=== PATIENT | male | born 1990 | race Caucasian/White ===

== ENCOUNTER → 2017-04-26 | Outpatient (CLI) | payer OTHER ==
[~2017-04-26] VITALS: Ht 188 cm; Wt 150.6 kg
[~2017-04-26] MED LIST: SUMA20SP8 NAE
[2017-04-26 14:20] VITALS: BP 123/89; PULSE 89; Ht 188 cm; Wt 150.6 kg
== END | disposition home or self-care (01) ==
LOC: C.NEUR 14:06
PROVIDERS: ATTEND Physician Assistant
DX: G47.30 Sleep apnea, unspecified (principal); E66.01 Morbid (severe) obesity due to excess calories

== ENCOUNTER 2017-07-21 13:53 | Emergency (ER) | payer OTHER ==
[~2017-07-21] VITALS: Ht 188 cm; Wt 144.1 kg
[~2017-07-21 13:53] MED LIST changes: +DEPRESSION MED PO
[2017-07-21 13:58] VITALS: TEMP 36.8; Ht 188 cm; Wt 144.1 kg
[2017-07-21] MEDS ORDERED: HYDROCODONE/ACETAMOPHEN 5/325MG TAB PO ONE (14:15)
--- NOTE | 2017-07-21 14:41 | DIAGNOSTIC IMAGING REPORT ---
RIGHT ELBOW 3 VIEWS CLINICAL HISTORY: Right elbow injury. FINDINGS: 3 views of the right elbow are obtained. No prior studies are available for comparison at the time of dictation. The skeletal structures are well mineralized. No fracture is seen. The joint spaces are maintained. There is no joint effusion. Postoperative change is partially imaged in the ulnar shaft in the forearm. Mild dorsal soft tissue swelling is observed. IMPRESSION: Mild dorsal soft tissue swelling with no radiographic evidence of right elbow fracture. Electronically signed by: Larry Eduardo M.D. 07/21/2017 2:39 PM Dictated Date/Time: 07/21/2017 2:38 PM
--- NOTE | 2017-07-21 14:41 | DIAGNOSTIC IMAGING REPORT ---
R FOREARM 2 VIEWS ROUTINE CLINICAL HISTORY: Right forearm pain status post trauma COMPARISON: Intraoperative radiograph dated 06/12/2015 DISCUSSION: There is an old internally fixated ulnar fracture. There is an old ununited ulnar styloid fracture. No acute fractures are visualized. IMPRESSION: Old postsurgical and posttraumatic change. No acute fractures are visualized. Electronically signed by: Wagner Osullivan M.D. 07/21/2017 2:39 PM Dictated Date/Time: 07/21/2017 2:38 PM
--- NOTE | 2017-07-21 14:41 | DIAGNOSTIC IMAGING REPORT ---
R SHOULDER MIN 2 VIEWS ROUTINE HISTORY: 26 years-old Male same acute right shoulder pain status post injury COMPARISON: None available TECHNIQUE: 3 views of the right shoulder FINDINGS: No acute fracture, dislocation or significant degenerative changes. No intra-articular or radiopaque foreign body. Imaged lung gregory are clear. IMPRESSION: No acute bony abnormality. The above report was generated using voice recognition software. It may contain grammatical, syntax or spelling errors. Electronically signed by: Néstor Hines M.D. 07/21/2017 2:39 PM Dictated Date/Time: 07/21/2017 2:38 PM
[2017-07-21] MEDS ORDERED: HYDR-5688 PO (15:00)
[2017-07-21 15:15] VITALS: BP 134/76; PULSE 88; O2SAT 98
--- NOTE | 2017-07-22 15:13 | EMERGENCY ROOM VISIT NOTE ---
ED Visit Note First contact with patient: 13:56 Chief Complaint: I hurt my right arm. History of Present Illness: Mr. Cedeno a 26-year-old white male who ambulates into the ED accompanied by his and children complaining of right arm from the shoulder down to the mid forearm. Patient reports approximately one to 2 hours ago he was helping a friend sat trusses; he is unsure the weight of the truss. The truss then fell over and struck his right arm. He reports he is not sure of initially where the trust struck his arm but since the injury he has been having pain from the shoulder to the mid forearm. He describes this pain as a combination of sharp and throbbing. It is slightly more prominent over the proximal forearm. He rates his discomfort 8/10. His pain is nonradiating. His pain worsens with palpation of the humeral head, the proximal lateral radius and the proximal ulna , all movements of the shoulder and elbow. He has not identified any alleviating factors related to the pain. He has not taken a medication for pain prior to arrival at the hospital. Associated with his pain he reports intermittently he has a tingling sensation in his hand that self resolves. Review of Systems: As noted above in history of present illness. Past Medical History: Status post appendectomy and unspecified right wrist surgeries. Current Medications: Unspecified antidepressant medication. Allergies to Medications: Prednisone. Social History: Patient is currently employed; he feels safe in his home environment; he admits to tobacco use and denies alcohol use. Physical Examination: Vital Signs: Date Time Temp Pulse Resp B/P (MAP) Pulse Ox O2 Delivery O2 Flow Rate FiO2 07/21/17 15:15 88 18 134/76 98 07/21/17 13:58 36.8 89 18 134/80 96 Room Air GENERAL: 26-year-old male in mild to moderate distress due to pain, nontoxic- appearing, afebrile and hemodynamically stable. NEUROLOGICAL: Awake, alert and oriented to person, place and time. Answering questions appropriately and following commands. SKIN: Warm, dry and pink. No open soft tissue trauma. RIGHT UPPER EXTREMITY: No gross bony deformity. No tenderness over the clavicle or scapula. Mild tenderness over the anterior lateral aspect of the humeral head without bony deformity, bony crepitus, swelling or ecchymosis. No tenderness throughout the mid humerus area. Mild tenderness over the distal humerus just above the elbow over the lateral aspect. There is some mild swelling but no bony deformity, bony crepitus, swelling or ecchymosis.. Moderate tenderness proximal forearm over the lateral radius. There is no bruising/ecchymosis, bony deformity or crepitus. He had pain with abduction and abduction of the shoulder, flexion and extension of the elbow, pronation and supination of forearm. Throughout the hand the skin was warm and pink and capillary refill is brisk. With the shoulder, elbow and forearm immobilized patient has full range of motion and muscle strength in all movements of the MCP , PIP and DIP joints. Throughout the hand the skin was warm and pink, distal pulses are intact and he was able to distinguish light sensations through all dermatomes of the lower arm and hand. ED Course: Patient is assessed as noted above. Patient's medication list was reviewed. Patient was given ice and one [place] tablet by mouth for pain. Right Elbow X-Rays: Were read by the radiologist and myself and shows no acute fractures or dislocations. There is mild swelling over the dorsal aspect. No joint effusion. Right Forearm X-Rays: Were read by myself and the radiologist showing no acute fractures and postsurgical hardware was still in place. Right Shoulder X-Rays: Were read by myself and the radiologist showing no acute fractures or dislocations. Patient was placed in an arm/shoulder sling. Patient was educated about today's findings and instructed on his treatment plan ; he verbalized understanding and agreement with this plan. Clinical Impression: Right upper extremity pain. Disposition: Patient discharged home in stable condition accompanied by his ; prior to departure he was reassessed and subjectively reported he was pain and symptom-free. Plan: Comfort measures were discussed with the patient including rest, ice, sling use and a sliding pain scale of ibuprofen, acetaminophen and [place]; he was educated on appropriate narcotic precautions and his name was checked in the state database and no red flags were noted. Patient is encouraged to follow-up with his PCP if no better in 4-5 days. Patient is encouraged return ED for worsening pain, worsening swelling, worsening tingling sensations, arm weakness or numbness or any new/concerning symptoms.
== END 2017-07-21 15:16 | disposition home or self-care (01) ==
LOC: C.EDB 13:54 → C.EDD 15:16
DX: M79.601 Pain in right arm (principal); F17.200 Nicotine dependence, unspecified, uncomplicated

== ENCOUNTER → 2017-08-05 | Outpatient (CLI) | payer OTHER ==
[~2017-08-05] MED LIST changes: +HYDR-5688 PO; -SUMA20SP8 NAE
--- NOTE | 2017-08-05 14:01 | DIAGNOSTIC IMAGING REPORT ---
L-SPINE MIN 4 VIEWS ROUTINE, THORACIC SPINE 3 VIEWS ROUTINE HISTORY: 26 years-old Male THORACIC BACK PAIN chronic back pain without known injury. COMPARISON: CT abdomen and pelvis 10/17/2012 TECHNIQUE: 5 views of the lumbar spine and 2 views of the thoracic spine. FINDINGS: THORACIC: The T12 vertebral body is only partially imaged on the frontal view. Mild multilevel endplate spurring is present without acute fracture or subluxation. No severe intervertebral disc space narrowing identified. The upper thoracic segments are sub-visualized on the lateral views secondary to overlying soft tissue. Soft tissues are unremarkable. LUMBAR: There are 5 nonrib-bearing lumbar-type vertebral segments present. No acute fracture or subluxation identified. No significant intervertebral disc space narrowing. Soft tissues are unremarkable. Soft tissues are unremarkable. There is surgical suture material projecting over the right lower quadrant of the abdomen. IMPRESSION: 1. No acute fracture or subluxation of the thoracic or lumbar spine. 2. Mild multilevel endplate spurring of the thoracic spine without significant intervertebral disc space narrowing identified. The above report was generated using voice recognition software. It may contain grammatical, syntax or spelling errors. Electronically signed by: Néstor Hines M.D. 08/05/2017 1:59 PM Dictated Date/Time: 08/05/2017 1:55 PM
[2017-08-05 17:07] LABS: BASO % 0.2 %; BASO ABS # 0.02 K/uL (0-0.2); COMPLETE YES; EOS % 2.4 %; IG% 0.1 %; LYMPH % 32.7 %; LYMPH ABS # 2.75 K/uL (1.2-3.4); MEAN CELL VOLUME 86.5 fL (80-100); MEAN CORPUSCULAR HEMOGLOBIN 30.1 pg (25-34); MEAN CORPUSCULAR HGB CONC 34.8 g/dl (32-36); MEAN PLATELET VOLUME 10.6 fL (7.4-10.4); MONO % 7.4 %; NEUT % 57.2 %; PLATELET COUNT 229 K/uL (130-400); RED BLOOD COUNT 5.32 M/uL (4.7-6.1)
[2017-08-05 17:31] LABS: ALT/SGPT 60 U/L (12-78); BLOOD UREA NITROGEN 19 mg/dl (7-18); CALCIUM 9.3 mg/dl (8.5-10.1); CARBON DIOXIDE 28 mmol/L (21-32); CHLORIDE 102 mmol/L (98-107); CREATININE 1.05 mg/dl (0.60-1.40); GLUCOSE 74 mg/dl (70-99); POTASSIUM 3.7 mmol/L (3.5-5.1); SODIUM 139 mmol/L (136-145)
[2017-08-05 17:42] LABS: ALKALINE PHOSPHATASE 72 U/L (45-117); AST/SGOT 36 U/L (15-37); THYROID STIMULATING HORMONE 0.924 uIu/ml (0.300-4.500)
== END | disposition home or self-care (01) ==
LOC: C.RADPV 13:16
PROVIDERS: ATTEND Family Medicine
DX: M54.6 Pain in thoracic spine (principal); R53.83 Other fatigue

== ENCOUNTER → 2018-04-21 | Outpatient (CLI) | payer OTHER ==
[~2018-04-21] VITALS: Ht 188 cm; Wt 153.5 kg
[~2018-04-21] MED LIST changes: -HYDR-5688 PO
[2018-04-21 14:26] VITALS: BP 120/79; PULSE 101; Ht 188 cm; Wt 153.5 kg
== END | disposition home or self-care (01) ==
LOC: C.NEUR 13:55
PROVIDERS: ATTEND Internal Medicine Pulmonary Disease
DX: G47.33 Obstructive sleep apnea (adult) (pediatric) (principal); Z72.821 Inadequate sleep hygiene